=== PATIENT | female | born 2000 | race American Indian/Alaskan Native ===

== ENCOUNTER 2021-03-21 00:26 | Emergency (ER) | payer MEDICAID ==
[2021-03-21 00:44] VITALS: BP 120/61
--- NOTE | 2021-03-21 01:35 | Emergency Department Report ---
ED General Adult HPI - General Chief complaint: Eye Problems Stated complaint: BLURRY/PAINFUL/SWOLLEN EYES Time Seen by Provider: 03/21/21 01:34 Source: patient, RN notes reviewed Mode of arrival: Ambulatory Limitations: No Limitations - History of Present Illness Initial comments: The patient is a 20-year-old female. She is 4, para 3. She is approximately 16 weeks gestation. She typically follows at [facility] for her care. She reports an outpatient ultrasound last week which demonstrated an IUP. She does not wear contact lenses. She presents to the ER with a complaint of itchy crusty eyes, left greater than right, and some mild left-sided superficial eyelid pain. She denies additional injuries or complaints. No loss of visual acuity. No trauma. Reports multiple young children at home with similar symptoms, and preceding symptoms. No urinary symptoms. No vomiting. Minimal relief with [id number] Tylenol. -: Gradual, days(s) Location: eyes Severity scale (0 -10): 10 Quality: other (Crusting and itchy) Consistency: constant Improves with: none Worsens with: none - Related Data Previous Rx's Medication Instructions Recorded Last Taken Type Erythromycin [Erythromycin Ophth 1 applic OS Q6HR 8 Days #1 tube 03/21/21 Unknown Rx Oint] Mineral Oil/Petrolatum,White 1 applic OP PRN PRN #1 oint...g. 03/21/21 Unknown Rx [Refresh Lacri-Lube Ointment] Allergies Allergy/AdvReac Type Severity Reaction Status Date / Time No Known Allergies Allergy Unverified 03/21/21 00:47 ED Review of Systems ROS: Stated complaint: BLURRY/PAINFUL/SWOLLEN EYES Other details as noted in HPI Constitutional: denies: fever Eyes: eye discharge, other (Pain). denies: vision change ENT: denies: epistaxis Respiratory: denies: cough Cardiovascular: denies: chest pain Gastrointestinal: nausea. denies: abdominal pain, vomiting Genitourinary: denies: dysuria Psychiatric: anxiety ED Past Medical Hx - Past Medical History Previous Medical History?: No - Surgical History Past Surgical History?: No - Medications Home Medications: Home Medications Medication Instructions Recorded Confirmed Last Taken Type Erythromycin [Erythromycin Ophth 1 applic OS Q6HR 8 Days #1 tube 03/21/21 Unknown Rx Oint] Mineral Oil/Petrolatum,White 1 applic OP PRN PRN #1 oint...g. 03/21/21 Unknown Rx [Refresh Lacri-Lube Ointment] ED Physical Exam - General Limitations: No Limitations General appearance: alert, in no apparent distress - Head Head exam: Present: atraumatic, normocephalic - Eye Eye exam: Present: PERRL, EOMI, conjunctival injection (Bilateral conjunctival injection, left greater than right. Crusting and discharge noted. There is no direct or consensual photophobia), other (Visual acuity intact to finger counting, color perception, reading at a close distance). Absent: scleral icterus, nystagmus, periorbital swelling, periorbital tenderness - ENT ENT exam: Present: normal exam, normal orophraynx, mucous membranes moist, normal external ear exam - Neck Neck exam: Present: normal inspection, full ROM. Absent: tenderness, meningismus - Respiratory Respiratory exam: Present: normal lung sounds bilaterally. Absent: respiratory distress, wheezes, rales, rhonchi, stridor, decreased breath sounds - Cardiovascular Cardiovascular Exam: Present: regular rate, normal rhythm, normal heart sounds. Absent: bradycardia, tachycardia, irregular rhythm, systolic murmur, diastolic murmur, rubs, gallop - GI/Abdominal GI/Abdominal exam: Present: soft, other (Uterus nontender and consistent with date). Absent: distended, tenderness, guarding, rebound, rigid, pulsatile mass - Extremities Exam Extremities exam: Present: normal inspection, full ROM, other (2+ pulses noted in the bilateral upper and lower extremities. There is no palpable cord. negative Homans sign. Muscular compartments are soft. The pelvis is stable.). Absent: pedal edema, calf tenderness - Back Exam Back exam: Present: normal inspection, full ROM. Absent: tenderness, CVA tenderness (R), CVA tenderness (L), paraspinal tenderness, vertebral tenderness - Neurological Exam Neurological exam: Present: alert, oriented X3, normal gait, other (No facial droop. Tongue midline. Extraocular movements intact bilaterally. Facial sensation intact to light touch in V1, V2, V3 distribution bilaterally. 5 and a 5 strength in 4 extremities. Sensation intact to light touch in 4 extremitie s.). Absent: motor sensory deficit - Psychiatric Psychiatric exam: Present: normal affect, normal mood - Skin Skin exam: Present: warm, dry, intact, normal color. Absent: rash ED Course Vital Signs 03/21/21 00:42 Temperature 98.1 F Pulse Rate 107 H Respiratory 18 Rate Blood Pressure 120/61 [Right] O2 Sat by Pulse 99 Oximetry ED Medical Decision Making - Lab Data Vital Signs 03/21/21 00:42 Temperature 98.1 F Pulse Rate 107 H Respiratory 18 Rate Blood Pressure 120/61 [Right] O2 Sat by Pulse 99 Oximetry - Medical Decision Making Differential diagnosis, including but not limited to: Conjunctivitis, bacterial versus viral versus allergic, incidental Assessment and plan: 20-year-old female, who was afebrile with reassuring vital signs, with resolving tachycardia, with a complaint of left-sided primarily ocular crusting and discharge and pain, without direct or consensual photophobia, pupils reactive to light bilaterally, with left-sided conjunctival injection, crusting, and ocular discharge. The patient does not wear glasses or contact lenses. There is no trauma. This is suggestive of conjunctivitis. Warm compresses, Tylenol for pain, erythromycin ointment, artificial tears, discussed hand hygiene. Return precautions reviewed. All questions answered. Patient's visual acuity test complete. Both eyes 20/20, R eye 20/25, L eye 20/20. Patient taken to FT room 36 for heart tones heart rate 164 bpm. There is no abdominal pain or tenderness. There are no abdominal complaints at this time Critical care attestation.: If time is entered above; I have spent that time in minutes in the direct care of this critically ill patient, excluding procedure time. ED Disposition Clinical Impression: Acute conjunctivitis Qualifiers: Acute conjunctivitis type: unspecified Laterality: left Qualified Code(s): H10.32 - Unspecified acute conjunctivitis, left eye Disposition: HOME / SELF CARE / HOMELESS Is pt being admited?: No Does the pt Need Aspirin: No Condition: Good Instructions: Bacterial Conjunctivitis, Adult Additional Instructions: Please wash hands frequently, thoroughly and often. Patient likely has conjunctivitis, which is very contagious. Apply warm compresses as often as as needed, and use Tylenol/acetaminophen [id number], 650 mg by mouth, every 4-6 hours as needed for physical pain, Daily dose to not exceed 3 g per 24 hours. Use artificial tears as often as as needed, and antibiotics as directed. Please be careful, as this is very contagious, and patient may partially cure this disease, and then reacquired the disease from sick contacts at home. Therefore, wash hands after handling food, before handling food, after touching other people before touching people. Please follow-up with your outpatient SYSTEMS SUPPORT OFFICER as scheduled. Please follow-up with an outpatient primary care doctor or guest room attendant in the next 5 to 7 days for repeat checkup and evaluation. Please return to the emergency room right away with new pain, worsened pain, migration of pain, projectile vomiting, change in mental status, confusion, inability to tolerate liquid feeds, new, worsened or different symptoms not present on the initial emergency room evaluation. Referrals: PRIMARY CARE, [Primary Care Provider] - 3-5 Days SUNITA GOMEZ MD [Staff Physician] - 3-5 Days [facility] [Provider Group] - 3-5 Days Forms: Work/School Release Form(ED)
[2021-03-21] MEDS ORDERED: ACETAMINOPHEN 325 MG TAB PO ONE (02:17)
== END 2021-03-21 02:18 | disposition home or self-care (01) ==
LOC: ED 00:26
DX: O26.892 Other specified pregnancy related conditions, second trimester (principal); H10.32 Unspecified acute conjunctivitis, left eye; Z3A.16 16 weeks gestation of pregnancy
CPT/HCPCS: 99282

== ENCOUNTER 2022-01-19 14:33 | Emergency (ER) | payer MEDICAID ==
[2022-01-19 14:39] VITALS: BP 142/99
[2022-01-19 16:58] LABS: Basophils # (Auto) 0.1 K/mm3 (0.0-0.1); Basophils % (Auto) 0.6 % (0.0-1.8); Eosinophils % (Auto) 0.3 % (0.0-4.3); Hemoglobin 13.6 gm/dl (10.1-14.3); Lymphocytes # (Auto) 1.9 K/mm3 (1.2-5.4); Lymphocytes % (Auto) 19.4 % (13.4-35.0); Mean Corpuscular HGB Conc 33 % (30-34); Mean Corpuscular Volume 86 fl (79-97); Monocytes # (Auto) 0.6 K/mm3 (0.0-0.8); Monocytes % (Auto) 6.4 % (0.0-7.3); Platelet Count 510 K/mm3 (140-440); Red Blood Count 4.79 M/mm3 (3.65-5.03)
[2022-01-19 17:08] LABS: Red Cell Distribution Width 20.2 % (13.2-15.2)
[2022-01-19 17:11] LABS: Mucus,Urine 3+ /HPF
[2022-01-19 17:14] LABS: RBC,Urine > 182.0 /HPF (0.0-6.0)
[2022-01-19 17:25] LABS: Color,Urine Amber (Yellow)
[2022-01-19 17:29] LABS: HCG Qualitative,Urine Negative (Negative); Ictotest,Urine Negative (Negative)
[2022-01-19 17:34] LABS: Blood Urea Nitrogen 11 mg/dL (7-17); Calcium 10.2 mg/dL (8.4-10.2); Hemolysis Index 5
[2022-01-19 17:43] LABS: BUN/Creatinine Ratio 18
--- NOTE | 2022-01-19 18:44 | Emergency Department Report ---
ED Abdominal Pain HPI - General Chief Complaint: Abdominal Pain Stated Complaint: ABD PAIN Time Seen by Provider: 01/19/22 18:11 Source: patient, EMS Mode of arrival: Stretcher Limitations: No Limitations - History of Present Illness Initial Comments: 21-year-old female presenting with abdominal pain. Patient describes 3 days of generalized abdominal cramping nausea vomiting also reports her urine is dark, but she denies dysuria, frequency urgency back pain. Contradicts had triage note which indicates "patient has been complain of abdominal pain since she had a miscarriage in Sep, 2021". However patient denies that, states that this pain episode is new and different from the usual pain. No fever no chills no nausea vomiting, she denies being . No vaginal bleeding or discharge. , Patient is very disinterested in speaking with me more interested in speaking on a cellular device . -: Gradual, days(s) Location: diffuse Radiation: none Severity: moderate Severity scale (0 -10): 8 Quality: cramping Consistency: intermittent Improves With: nothing Worsens With: nothing - Related Data Previous Rx's Medication Instructions Recorded Last Taken Type Erythromycin [Erythromycin Ophth 1 applic OS Q6HR 8 Days #1 tube 03/21/21 Unknown Rx Oint] Mineral Oil/Petrolatum,White 1 applic OP PRN PRN #1 oint...g. 03/21/21 Unknown Rx [Refresh Lacri-Lube Ointment] Ibuprofen [Motrin 600 MG tab] 600 mg PO Q8H PRN #20 tablet 01/19/22 Unknown Rx Ondansetron [Zofran Odt] 4 mg PO Q8HR PRN #20 tab.rapdis 01/19/22 Unknown Rx cephALEXin [Keflex] 500 mg PO Q12HR 7 Days #12 cap 01/19/22 Unknown Rx Allergies Allergy/AdvReac Type Severity Reaction Status Date / Time No Known Allergies Allergy Verified 01/19/22 14:39 ED Review of Systems ROS: Stated complaint: ABD PAIN Other details as noted in HPI Constitutional: denies: see HPI, chills, fever ENT: denies: ear pain, throat pain Respiratory: denies: cough Cardiovascular: denies: chest pain, palpitations Endocrine: denies: excessive sweating Gastrointestinal: abdominal pain, nausea, vomiting. denies: diarrhea Genitourinary: denies: urgency, dysuria, frequency, hematuria, discharge Musculoskeletal: denies: back pain, joint swelling Skin: denies: rash, lesions Neurological: denies: headache, weakness, numbness Psychiatric: denies: anxiety ED Past Medical Hx - Medications Home Medications: Home Medications Medication Instructions Recorded Confirmed Last Taken Type Erythromycin [Erythromycin Ophth 1 applic OS Q6HR 8 Days #1 tube 03/21/21 Unknown Rx Oint] Mineral Oil/Petrolatum,White 1 applic OP PRN PRN #1 oint...g. 03/21/21 Unknown Rx [Refresh Lacri-Lube Ointment] Ibuprofen [Motrin 600 MG tab] 600 mg PO Q8H PRN #20 tablet 01/19/22 Unknown Rx Ondansetron [Zofran Odt] 4 mg PO Q8HR PRN #20 tab.rapdis 01/19/22 Unknown Rx cephALEXin [Keflex] 500 mg PO Q12HR 7 Days #12 cap 01/19/22 Unknown Rx ED Physical Exam - General Limitations: No Limitations General appearance: alert, in no apparent distress - Head Head exam: Present: atraumatic - Eye Eye exam: Present: normal appearance Pupils: Present: normal accommodation - ENT ENT exam: Present: normal exam, normal orophraynx - Neck Neck exam: Present: normal inspection - Respiratory Respiratory exam: Present: normal lung sounds bilaterally. Absent: respiratory distress - Cardiovascular Cardiovascular Exam: Present: regular rate, normal rhythm - GI/Abdominal GI/Abdominal exam: Present: soft. Absent: distended, tenderness, guarding, rebound - Extremities Exam Extremities exam: Present: normal inspection, full ROM. Absent: tenderness - Back Exam Back exam: Present: normal inspection, full ROM. Absent: CVA tenderness (R), CVA tenderness (L) - Neurological Exam Neurological exam: Present: alert, oriented X3, CN II-XII intact - Psychiatric Psychiatric exam: Present: normal affect, normal mood. Absent: depressed - Skin Skin exam: Present: warm, dry, intact, normal color ED Course Vital Signs 01/19/22 14:38 Temperature 97.8 F Pulse Rate 83 Respiratory 18 Rate Blood Pressure 142/99 [Left] O2 Sat by Pulse 99 Oximetry ED Medical Decision Making - Lab Data Result diagrams: 01/19/22 16:15 01/19/22 16:15 Abnormal Labs 01/19/22 01/19/22 01/19/22 16:15 16:15 16:37 RDW 20.2 H Plt Count 510 H Seg Neutrophils % 73.3 H Glucose 127 H Urine WBC (Auto) 56.0 H U Epithel Cells (Auto) 57.0 H Laboratory Tests 01/19/22 01/19/22 01/19/22 16:15 16:15 16:37 WBC 9.8 RBC 4.79 Hgb 13.6 Hct 41.0 MCV 86 MCH 29 MCHC 33 RDW 20.2 H Plt Count 510 H Lymph % (Auto) 19.4 Atkinson % (Auto) 6.4 Eos % (Auto) 0.3 Baso % (Auto) 0.6 Lymph # (Auto) 1.9 Atkinson # (Auto) 0.6 Eos # (Auto) 0.0 Baso # (Auto) 0.1 Seg Neutrophils % 73.3 H Seg Neutrophils # 7.2 Sodium 141 Potassium 4.3 Chloride 101.5 Carbon Dioxide 23 Anion Gap 21 BUN 11 Creatinine 0.6 Estimated GFR > 60 BUN/Creatinine Ratio 18 Glucose 127 H Calcium 10.2 Urine Color Jazmin Urine Turbidity Cloudy Specific Crum (Man) 1.030 Ur Protein (Man) 4+ Ur Ketones (Man) Negative Ur Nitrite (Man) Negative Ur Reducing Substances Not Reportable Urine Bilirubin (Man) Small Urine Ictotest Negative Leukocyte Esterase (Man) Trace Urine WBC (Auto) 56.0 H Urine RBC (Auto) > 182.0 U Epithel Cells (Auto) 57.0 H Urine RBC (Manual) 5+ Urine Mucus 3+ Urine HCG, Qual Negative - EKG Data When compared to previous EKG there are: no significant change Interpretation: no acute changes - Medical Decision Making No WBCs, lipase, kidney function, liver enzymes are all within normal limit. Urinalysis multiple WBCs, RBCs, epithelial cells, however we will treat for acute UTI. Otherwise patient is stable nontoxic-appearing her abdomen is soft nontender she has not had any vomiting episodes throughout her ED course, ambulating steadily without assistance. Rx for Keflex, antiemetics, dietary management, referral for follow-up. Patient remained stable nontoxic-appearing, afebrile, ambulating steadily without assistance. Gone over ED findings with patient as well as plan for follow-up. Also discussed return precautions with patient, all questions and concerns addressed. Patient is stable to be discharged follow-up outpatient. Audio voice dictation device used, hence the chart might contain some dictation errors, mispronunciations, wrong spelling and wrong verbiage. Critical care attestation.: If time is entered above; I have spent that time in minutes in the direct care of this critically ill patient, excluding procedure time. ED Disposition Clinical Impression: Abdominal pain, UTI (urinary tract infection), Gastroenteritis Disposition: HOME / SELF CARE / HOMELESS Is pt being admited?: No Does the pt Need Aspirin: No Condition: Stable Instructions: Abdominal Pain (ED), Urinary Tract Infection, Adult Prescriptions: cephALEXin [Keflex] 500 mg PO Q12HR 7 Days #12 cap Ibuprofen [Motrin 600 MG tab] 600 mg PO Q8H PRN #20 tablet PRN Reason: Pain Ondansetron [Zofran Odt] 4 mg PO Q8HR PRN #20 tab.rapdis PRN Reason: Nausea Forms: Work/School Release Form(ED)
[2022-01-19] MEDS ORDERED: KETOROLAC 10 MG TAB PO ONE (18:55)
[2022-01-19] MEDS ORDERED: LIDOCAINE-MPF (1%) 10 MG/1 ML VIAL 5 ML INFILTRATI ONE (18:55)
[2022-01-19] MEDS ORDERED: ONDANSETRON 4 MG ODT TAB PO ONE (18:55)
== END 2022-01-20 03:22 | disposition home or self-care (01) ==
LOC: ED 14:33
DX: R10.9 Unspecified abdominal pain (principal); N39.0 Urinary tract infection, site not specified; K52.9 Noninfective gastroenteritis and colitis, unspecified
CPT/HCPCS: 36415; 80048; 81001; 81025; 85025; 87086; 96372; 99284; J0696; J3490; Q0162